=== PATIENT | female | born 1980 | race Caucasian/White ===

== ENCOUNTER → 2016-12-23 | Outpatient (CLI) | payer BC | END | disposition home or self-care (01) | LOC: C.PAPS 09:40 | PROVIDERS: ATTEND Physician Assistant | DX: Z01.419 Encounter for gynecological examination (general) (routine) without abnormal findings (principal) ==

== ENCOUNTER → 2017-01-14 | Outpatient (CLI) | payer BC | END | disposition home or self-care (01) | LOC: C.LAB1850 15:33 | PROVIDERS: ATTEND Obstetrics & Gynecology | DX: Z31.69 Encounter for other general counseling and advice on procreation (principal) ==